=== PATIENT | female | born 1990 | race Caucasian/White ===

== ENCOUNTER 2016-05-03 20:16 | Emergency (ER) | payer BC, OTHER ==
[2016-05-03 20:34] VITALS: O2SAT 99
[2016-05-03] MEDS ORDERED: TORAdol 30 mg Injection IM ONE (22:26)
[2016-05-03] MEDS ORDERED: TORAdol 30 mg Injection ONE (22:45)
[2016-05-03 23:13] VITALS: BP 122/74; PULSE 68
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
== END 2016-05-04 01:10 ==
LOC: ED 20:16
DX: S13.9XXA Sprain of joints and ligaments of unspecified parts of neck, initial encounter (principal); S43.402A Unspecified sprain of left shoulder joint, initial encounter; M50.222 Other cervical disc displacement at C5-C6 level; V49.59XA Passenger injured in collision with other motor vehicles in traffic accident, initial encounter
CPT/HCPCS: 71010; 72125; 73030; 96372; 99282; J1885; L0172

== ENCOUNTER 2017-01-30 15:10 | Emergency (ER) | payer OTHER ==
[2017-01-30 15:25] VITALS: O2SAT 99
[2017-01-30] MEDS ORDERED: Adacel Vial IM ONE ×2 (15:36→15:44)
[2017-01-30] MEDS ORDERED: BACIGUENT PACKET ONE (15:36)
--- NOTE | 2017-01-30 15:46 | ERPHSYRPT ---
- History of Present Illness Time Seen by Provider: 01/30/17 15:41 Source: patient Exam Limitations: no limitations Patient Subjective Stated Complaint: laceration to inside of right hand at the base of the thumb Triage Nursing Assessment: pt to er c/o laceration to base of right thumb, pt was washing dishes when a piece of broken glass caused the injury, bleeding controlled, last tetnus unknown Physician History: The patient is a 26-year-old female with family complaining that she cut her right thumb base on glasses she was washing dishes prior to arrival. There is mild bleeding. There is no numbness or tingling. Her past tetanus vaccination is unknown. Timing/Duration: today Quality: other (lac) Severity: mild Location: hands Possible Causes: other (cut) Associated Symptoms: denies symptoms Allergies/Adverse Reactions: No Known Drug Allergies Allergy (Verified 05/03/16 20:45) Home Medications: No Home Meds [No Home Meds] 1 ea UD 05/03/16 [History] Hx Tetanus, Diphtheria Vaccination/Date Given: (unknown) Hx Influenza Vaccination/Date Given: No Hx Pneumococcal Vaccination/Date Given: No - Review of Systems Constitutional: No Fever, No Chills Eyes: No Symptoms Ears, Nose, & Throat: No Symptoms Respiratory: No Cough, No Dyspnea Cardiac: No Chest Pain, No Edema, No Syncope Abdominal/Gastrointestinal: No Abdominal Pain, No Nausea, No Vomiting, No Diarrhea Genitourinary Symptoms: No Dysuria Musculoskeletal: No Back Pain, No Neck Pain Skin: Other (lac) Neurological: No Dizziness, No Focal Weakness, No Sensory Changes Psychological: No Symptoms Endocrine: No Symptoms Hematologic/Lymphatic: No Symptoms Immunological/Allergic: No Symptoms All Other Systems: Reviewed and Negative - Past Medical History Pertinent Past Medical History: Yes Other Medical History: Homosystinuria - Past Surgical History Past Surgical History: Yes Other Surgical History: Eye surgery - Social History Smoking Status: Current every day smoker How long have you smoked: 10 Exposure to second hand smoke: Yes Alcohol Use: Socially Drug Use: none Patient Lives Alone: No - Female History Hx Last Menstrual Period: IUD Hx Now: No (on jarocho) - Nursing Vital Signs Nursing Vital Signs: Initial Vital Signs Temperature 98.2 F 01/30/17 15:24 Pulse Rate 94 H 01/30/17 15:24 Respiratory Rate 18 01/30/17 15:24 Blood Pressure 122/74 01/30/17 15:24 O2 Sat by Pulse Oximetry 99 01/30/17 15:24 Pain Scale Pain Intensity 7 - Physical Exam General Appearance: no apparent distress, alert Eye Exam: PERRL/EOMI, eyes nml inspection Ears, Nose, Throat Exam: normal ENT inspection, pharynx normal, moist mucous membranes Pelvic Exam: not done Rectal Exam: not done Back Exam: normal inspection, normal range of motion, No CVA tenderness, No vertebral tenderness Extremity Exam: normal inspection, normal range of motion Neurologic Exam: alert, oriented x 3, cooperative, normal mood/affect, sensation nml, No motor deficits Skin Exam: laceration (1.0 cm superficial laceration to base of right thumb.) SpO2 Interpretation: normal SpO2: 99 Oxygen Delivery: Room Air Ordered Tests: Medication Summary Discontinued Medications Generic Name Dose Route Start Last Admin Trade Name Freq PRN Reason Stop Dose Admin Bacitracin Confirm 01/30/17 15:36 Baciguent Packet Administered 01/30/17 15:37 Dose 1 gm .ROUTE .STK-MED ONE Diphtheria/Tetanus/Acell Pertussis 0.5 ml 01/30/17 15:36 Adacel Vial IM 01/30/17 15:37 .ONCE ONE - Progress Progress: improved Counseled pt/family regarding: diagnosis - Departure Time of Disposition: 15:44 Departure Disposition: Home Clinical Impression: Superficial laceration of skin Condition: Stable Critical Care Time: No Referrals: LUIS CARLOS GANDARA [Primary Care Provider] - Additional Instructions: You have a superficial laceration to your right thumb. Please keep the wound covered, especially try using waterproof Band-Aids available [id number]. You were given a tetanus vaccination in the ER. Follow-up as needed.
[2017-01-30 16:03] VITALS: BP 116/79; PULSE 84
== END 2017-01-30 16:04 | disposition home or self-care (01) ==
LOC: ED 15:10
DX: S61.411A Laceration without foreign body of right hand, initial encounter (principal); W25.XXXA Contact with sharp glass, initial encounter; Y93.G1 Activity, food preparation and clean up
CPT/HCPCS: 90471; 90715; 96372; 99281; 99283; A9270-GY

== ENCOUNTER 2019-03-01 07:29 | Emergency (ER) | payer OTHER ==
[2019-03-01] MEDS ORDERED: TYLENOL EXTRA STRENGTH 500 MG ONE (08:13)
[2019-03-01] MEDS: TYLENOL EXTRA STRENGTH 500 MG PO STA (08:14)
--- NOTE | 2019-03-01 08:16 | ERPHSYRPT ---
- History of Present Illness Time Seen by Provider: 03/01/19 07:50 Source: patient Exam Limitations: no limitations Patient Subjective Stated Complaint: Pt stated that she hasn't felt well since yesterday, having sharp pains from her left side and having flank pain, rates pain 12/07 Triage Nursing Assessment: Pt walked into the ER shivering, afebrile, vitals wnl , lungs clear, pulses normal, bowel sounds heard in all 4, pain with palpatation to the left quadrants and left flank pain, sore throat Physician History: Patient has had sore throat, fever and myalgias and lower back pain for the past day. No evaluation or treatment prior to coming into the emergency department. Timing/Duration: yesterday Fever Severity: moderate Fever Therapy CHEF BROILER OR FRY: none Associated Symptoms: muscle aches, rhinorrhea, sore throat, No abdominal pain, No chest pain, No confusion, No cough, No diaphoresis, No headache, No nausea/ vomiting, No rash, No shortness of breath, No stiff neck, No syncope, No weakness International travel in last 2 weeks: No Allergies/Adverse Reactions: No Known Drug Allergies Allergy (Verified 03/01/19 07:37) Home Medications: Aspirin EC 81 mg [Ecotrin 81 mg] 81 mg PO DAILY 03/01/19 [History] Vits W-Ca,Fe,FA(<1Mg) [] 1 each PO DAILY 03/01/19 [History] Hx Tetanus, Diphtheria Vaccination/Date Given: (unknown) Hx Influenza Vaccination/Date Given: Yes (12/2017) Hx Pneumococcal Vaccination/Date Given: No - Review of Systems Constitutional: Fever, Chills, Fatigue Eyes: No Eye Pain, No Vision Changes Ears, Nose, & Throat: Nose Congestion, Throat Pain, No Mouth Pain, No Mouth Swelling, No Hoarse, No Painful Swallowing Respiratory: No Cough, No Dyspnea, No Dyspnea on Exertion (FARLEY) Cardiac: No Chest Pain, No Palpitations, No Syncope Abdominal/Gastrointestinal: No Abdominal Pain, No Nausea, No Vomiting, No Hematemesis, No Hematochezia, No Melena Genitourinary Symptoms: No Dysuria, No Frequency, No Hematuria, No Urgency, No Flank Pain Musculoskeletal: Back Pain, Myalgias, No Neck Pain Skin: No Pruritis, No Rash Neurological: No Dizziness, No Focal Weakness, No Lethargy, No Parasthesia, No Sensory Changes, No Speech Changes Psychological: No Anxiety Endocrine: No Polydipsia, No Excessive Sweating Hematologic/Lymphatic: No Easy Bleeding, No Easy Bruising All Other Systems: Reviewed and Negative - Past Medical History Pertinent Past Medical History: Yes Other Medical History: Homosystinuria - Past Surgical History Past Surgical History: Yes Other Surgical History: Eye surgery - Social History Smoking Status: Current every day smoker How long have you smoked: 10 Exposure to second hand smoke: Yes Alcohol Use: Socially Drug Use: none Patient Lives Alone: No - Female History Hx Now: No (irregular periods since merena) - Nursing Vital Signs Nursing Vital Signs: Initial Vital Signs Temperature 98.1 F 03/01/19 07:37 Pulse Rate 84 03/01/19 07:37 Blood Pressure 110/74 03/01/19 07:37 O2 Sat by Pulse Oximetry 99 03/01/19 07:37 Pain Scale Pain Intensity 0 - Physical Exam General Appearance: no apparent distress, alert Eye Exam: PERRL/EOMI, eyes nml inspection, No scleral icterus, No pale conjunctivae, No photophobia ENT Exam: normal ENT inspection, no apparent trauma, hearing grossly normal, TMs normal, pharynx normal, nasal congestion, airway intact, No TM bulging, No TM red, No pharyngeal erythema, No tonsillar exudate, No trismus, No muffled/ hoarse voice Neck Exam: normal inspection, non-tender, supple, full range of motion, trachea midline, No limited range of motion, No lymphadenopathy (R), No lymphadenopathy (L), No Brudzinski's sign Respiratory Exam: normal breath sounds, chest non-tender, lungs clear, no respiratory distress, no accessory muscle use, No decreased breath sounds, No respiratory distress, No decreased air movement, No accessory muscle use, No crackles/rales, No rhonchi, No stridor, No wheezing Cardiovascular/Chest Exam: normal heart sounds, regular rate/rhythm, normal peripheral pulses Gastrointestinal/Abdominal Exam: soft, non tender, no distention, no mass, no guarding, no ecchymosis, normal bowel sounds, No no organomegaly, No guarding, No tenderness, No abnormal bowel sounds Extremity Exam: non-tender, normal range of motion, normal inspection, normal capillary refill Neurologic Exam: alert, oriented x 3, cooperative, plug assembler II-XII nml as tested, normal mood/affect, sensation nml Skin Exam: normal color, warm, dry, No rash, No petechiae, No jaundice, No cyanosis SpO2 Interpretation: normal SpO2: 99 O2 Delivery: Room Air Ordered Tests: Active Orders 24 hr Category Date Time Status CULTURE,URINE Stat Lab 03/01/19 08:02 Received HCG,QUALITATIVE URINE Stat Lab 03/01/19 08:03 Completed UA W/RFX UR CULTURE Stat Lab 03/01/19 08:02 Completed Medication Summary Discontinued Medications Generic Name Dose Route Start Last Admin Trade Name Carlos PRN Reason Stop Dose Admin Acetaminophen 1,000 mg 03/01/19 08:01 03/01/19 08:14 Tylenol Extra Strength 500 Mg PO 03/01/19 08:02 1,000 mg STAT STA Administration Acetaminophen Confirm 03/01/19 08:13 Tylenol Extra Strength 500 Mg Administered 03/01/19 08:14 Dose 1,000 mg .ROUTE .STK-MED ONE Ibuprofen 600 mg 03/01/19 09:13 03/01/19 09:17 Motrin 600 Mg PO 03/01/19 09:14 600 mg STAT ONE Administration Ibuprofen Confirm 03/01/19 09:16 Motrin 600 Mg Administered 03/01/19 09:17 Dose 600 mg .ROUTE .STK-MED ONE Lab/Rad Data: Laboratory Results 03/01/19 03/01/19 03/01/19 Range/Units 08:05 08:03 08:02 Urine Color ANIBAL (YELLOW) Urine Appearance SLIGHTLY CLOUDY (CLEAR) Urine pH 5.0 (5-6) Ur Specific [place] 1.029 (1.005-1.025) Urine Protein 30 (Negative) Urine Ketones SMALL (NEGATIVE) Urine Blood MODERATE (0-5) Rakesh/ul Urine Nitrite NEGATIVE (NEGATIVE) Urine Bilirubin NEGATIVE (NEGATIVE) Urine Urobilinogen 2 (0-1) mg/dL Ur Leukocyte Esterase TRACE (NEGATIVE) Urine WBC (Auto) 6-10 (0-5) /HPF Urine RBC (Auto) 11-15 (0-2) /HPF U Epithel Cells (Auto) FEW (FEW) /HPF Urine Bacteria (Auto) FEW (NEGATIVE) /HPF Urine Mucus (Auto) MANY (NEGATIVE) /HPF Urine Culture Reflexed YES (NO) Urine Glucose 50 (NEGATIVE) mg/dL Urine HCG, Qual NEGATIVE (Negative) Influenza Type A Ag NEGATIVE (NEGATIVE) Influenza Type B Ag NEGATIVE (NEGATIVE) RSV (PCR) NEGATIVE (Negative) Group A Strep Antibody POSITIVE (NEGATIVE) - Progress Progress: unchanged Progress Note: 03/01/19 09:32 Patient doing well. Patient's symptoms are due to the strep throat, but we will send the urine for culture and treat if it is positive accordingly as patient will be sent home with Keflex to treat the strep throat which will also cover susceptible bacteria infections of the urinary tract. Counseled pt/family regarding: lab results, diagnosis, need for follow-up - Departure Departure Disposition: Home Clinical Impression: Strep throat, Abnormal urinalysis Condition: Good Critical Care Time: No Referrals: LUIS CARLOS GANDARA [Primary Care Provider] - Follow Up with PCP/3 days Instructions: Sore Throat, Adult (DC), Fever, Adult (DC) Prescriptions: Cephalexin Mh 500 mg [Keflex 500 mg] 500 mg PO BID #20 capsule Prednisone 20 mg [Deltasone 20 mg] 60 mg PO DAILY PRN #9 tablet PRN Reason: Sore Throat Relief
[2019-03-01 08:48] LABS: Appearance SLIGHTLY CLOUDY (CLEAR); Bacteria FEW /HPF (NEGATIVE); Bilirubin NEGATIVE (NEGATIVE); Blood MODERATE Ery/ul (0-5); Epithelial Cells FEW /HPF (FEW); Glucose 50 mg/dL (NEGATIVE); Ketones SMALL (NEGATIVE); Leukocyte Esterase TRACE (NEGATIVE); Mucus MANY /HPF (NEGATIVE); Nitrite NEGATIVE (NEGATIVE); Protein,Urine Dip 30 (Negative); Specific Gravity 1.029 (1.005-1.025); Urobilinogen 2 mg/dL (0-1)
[2019-03-01 08:56] VITALS: BP 113/76; PULSE 89; O2SAT 99
[2019-03-01 09:02] LABS: Group A Strep POSITIVE (NEGATIVE); INFLUENZA A NEGATIVE (NEGATIVE); INFLUENZA B NEGATIVE (NEGATIVE); RESPIRATORY SYNCTIAL VIRUS NEGATIVE (Negative)
[2019-03-01] MEDS ORDERED: MOTRIN 600 MG ONE (09:16)
[2019-03-01] MEDS: MOTRIN 600 MG PO ONE (09:17)
== END 2019-03-01 09:41 | disposition home or self-care (01) ==
LOC: ED 07:29
DX: J02.0 Streptococcal pharyngitis (principal); R82.90 Unspecified abnormal findings in urine
CPT/HCPCS: 81001; 84703; 87086; 87631; 87651; 99283; A9270-GY

== ENCOUNTER 2019-04-27 14:28 | Emergency (ER) | payer BC, OTHER ==
[2019-04-27] MEDS ORDERED: Sodium Chloride 0.9% 1000 ML 1,000 ML IV STA (14:47)
[2019-04-27] MEDS ORDERED: MORPHINE SULFATE 2 MG INJ IV ONE (14:47)
[2019-04-27] MEDS ORDERED: MORPHINE SULFATE 2 MG INJ ONE (14:59)
[2019-04-27] MEDS ORDERED: Sodium Chloride 0.9% 1000 ML 1,000 ML ONE (14:59)
[2019-04-27 15:05] VITALS: O2SAT 99
[2019-04-27 15:07] LABS: Absolute Neutrophil Ct (ANC) 4.46 (1.4-6.9); BASOPHIL % 0.3 % (0.0-0.4); Basophil (Absolute #) 0.02 (0-0.4); Eosinophil % 2.4 % (0.00-5.0); Eosinophil (Absolute #) 0.19 (0-0.5); Hematocrit 34.6 % (35-47); Hemoglobin 11.7 gm/dl (12.0-16.0); Lymphocyte (Absolute #) 2.21 (1.0-4.6); Lymphocytes % 28.4 % (24.0-44.0); Mean Cell Volume 98.3 fl (78-100); Mean Corpuscular Hemoglobin 33.2 pg (26-32); Mean Corpuscular Hgb Concent. 33.8 g/dl (32-36); Mean Platelet Volume 10.6 fl (6-9.5); Monocyte (Absolute #) 0.91 (0.0-1.3); Monocytes % 11.7 % (0.0-12.0); Neutrophil % 57.2 % (36.0-66.0); Platelet Count 155 K/mm3 (150-450); Red Blood Count 3.52 M/mm3 (4.1-5.4); Red Cell Distribution Width 13.6 % (11.5-14.0); White Blood Count 7.8 K/mm3 (4.0-10.5)
[2019-04-27 15:12] LABS: ALBUMIN 3.4 g/dL (3.5-5.0); ALKALINE PHOSPHATASE 52 U/L (38-126); ANION GAP 8.7 MEQ/L (5-15); BLOOD UREA NITROGEN 11 mg/dL (7-17); CHLORIDE 105 mmol/L (98-107); Calcium 8.3 mg/dL (8.4-10.2); Carbon Dioxide 25 mmol/L (22-30); Creatinine 1 0.54 mg/dL (0.52-1.04); Glucose 89 mg/dL (74-106); Potassium 3.9 mmol/L (3.5-5.1); SGOT/AST 18 U/L (14-36); SGPT/ALT 23 U/L (0-35); SODIUM 136 mmol/L (137-145); Total Protein 6.4 g/dL (6.3-8.2)
--- NOTE | 2019-04-27 15:24 | ERPHSYRPT ---
- History of Present Illness Time Seen by Provider: 04/27/19 15:23 Historian: patient Exam Limitations: no limitations Patient Subjective Stated Complaint: pt reports sharp suprapubic mid abdominal pain for 2 days, states she took a home pregnany test that was quickly positive, reports that she has a metabolic disorder that causes her to be high risk and is concerned. pt denies any vaginal discharge or bleeding, last sexual acitivty was 3 days ago. pt reports her mirena was removed 3 months ago and she has not had a regular menstrual cycle since that time. Triage Nursing Assessment: pt is aox3, pupils perrl, afebrile, resps easy and non labored, radial pulses strong and equal, cap refill < 3 seconds, abd soft, tender to the lower mid suprapubic region, pt skin pale warm dry. Physician History: pt reports sharp suprapubic mid abdominal pain for 2 days, states she took a home pregnany test that was quickly positive, reports that she has a metabolic disorder that causes her to be high risk and is concerned. pt denies any vaginal discharge or bleeding, last sexual acitivty was 3 days ago. pt reports her mirena was removed 3 months ago and she has not had a regular menstrual cycle since that time. No fever, chills, no urinary symptoms Timing/Duration: today Quality: cramping Abdominal Pain Onset Location: suprapubic Pain Radiation: no radiation Severity of Pain-Max: moderate Severity of Pain-Current: moderate Modifying Factors: Improves With: nothing Associated Symptoms: denies symptoms Previous symptoms: no prior history Allergies/Adverse Reactions: No Known Drug Allergies Allergy (Verified 04/27/19 14:51) Home Medications: Aspirin EC 81 mg [Ecotrin 81 mg] 81 mg PO DAILY 03/01/19 [History] Vits W-Ca,Fe,FA(<1Mg) [] 1 each PO DAILY 03/01/19 [History] Hx Tetanus, Diphtheria Vaccination/Date Given: Yes Hx Influenza Vaccination/Date Given: Yes Hx Pneumococcal Vaccination/Date Given: No Immunizations Up to Date: Yes - Review of Systems Constitutional: No Fever, No Chills Eyes: No Symptoms Ears, Nose, & Throat: No Symptoms Respiratory: No Cough, No Dyspnea Cardiac: No Chest Pain, No Edema, No Syncope Abdominal/Gastrointestinal: Abdominal Pain, No Nausea, No Vomiting, No Diarrhea Genitourinary Symptoms: No Dysuria Musculoskeletal: No Back Pain, No Neck Pain Skin: No Rash Neurological: No Dizziness, No Focal Weakness, No Sensory Changes Psychological: No Symptoms Endocrine: No Symptoms All Other Systems: Reviewed and Negative - Past Medical History Pertinent Past Medical History: Yes Other Medical History: Homosystinuria. history of 4 miscarriages, one living child - Past Surgical History Past Surgical History: Yes Other Surgical History: Eye surgery - Social History Smoking Status: Current every day smoker How long have you smoked: 10 Exposure to second hand smoke: Yes Alcohol Use: Socially Drug Use: none Patient Lives Alone: No - Female History Hx Last Menstrual Period: january Hx Now: Yes (home test 2 days ago) - Nursing Vital Signs Nursing Vital Signs: Initial Vital Signs Temperature 98.7 F 04/27/19 14:34 Pulse Rate 86 04/27/19 14:34 Respiratory Rate 20 04/27/19 14:34 Blood Pressure 119/86 04/27/19 14:34 O2 Sat by Pulse Oximetry 100 04/27/19 14:34 Pain Scale Pain Intensity 6 - Physical Exam General Appearance: no apparent distress, alert Eye Exam: PERRL/EOMI, eyes nml inspection Ears, Nose, Throat Exam: normal ENT inspection, pharynx normal, moist mucous membranes Neck Exam: normal inspection, non-tender, supple, full range of motion Respiratory Exam: normal breath sounds, lungs clear, No respiratory distress Cardiovascular Exam: regular rate/rhythm, normal heart sounds Gastrointestinal/Abdomen Exam: soft, No tenderness, No mass Back Exam: normal inspection, normal range of motion, No CVA tenderness, No vertebral tenderness Extremity Exam: normal inspection, normal range of motion, pelvis stable Neurologic Exam: alert, oriented x 3, cooperative, normal mood/affect, nml cerebellar function, sensation nml, No motor deficits Skin Exam: normal color, warm, dry SpO2: 99 - Course Nursing assessment & vital signs reviewed: Yes Ordered Tests: Active Orders 24 hr Category Date Time Status IV Insertion STAT Care 04/27/19 14:52 Active CBC W DIFF Stat Lab 04/27/19 14:57 Completed CMP Stat Lab 04/27/19 14:57 Completed CULTURE,URINE Stat Lab 04/27/19 14:58 Received HCG QUALITATIVE,SERUM Stat Lab 04/27/19 14:57 Completed HCG, Quantitative (Inhouse) Stat Lab 04/27/19 14:57 Received UA W/RFX UR CULTURE Stat Lab 04/27/19 14:58 Completed Medication Summary Generic Name Dose Route Start Last Admin Trade Name Carlos PRN Reason Stop Dose Admin Ceftriaxone Sodium/Dextrose 1 g in 50 mls @ 100 mls/hr 04/27/19 15:42 15:44 Rocephin 1 Gm-D5w 50 Ml Bag IV 04/27/19 16:11 100 ml/hr STAT STA 100 mls/hr Administration Discontinued Medications Generic Name Dose Route Start Last Admin Trade Name Carlos PRN Reason Stop Dose Admin Ceftriaxone Sodium 1,000 mg 04/27/19 15:40 04/27/19 15:42 Rocephin 1000 Mg Inj IM 04/27/19 15:41 Not Given STAT ONE Sodium Chloride 1,000 mls @ 999 mls/hr 04/27/19 14:47 04/27/19 15:46 Sodium Chloride 0.9% 1000 Ml IV 04/27/19 15:47 Infused .Q1H1M STA Infusion Sodium Chloride Confirm 04/27/19 14:59 Sodium Chloride 0.9% 1000 Ml Administered 04/27/19 15:00 Dose 1,000 mls @ ud .ROUTE .STK-MED ONE Ceftriaxone Sodium/Dextrose Confirm 04/27/19 15:43 Rocephin 1 Gm-D5w 50 Ml Bag Administered 04/27/19 15:44 Dose 1 g in 50 mls @ ud IV .STK-MED ONE Morphine Sulfate 2 mg 04/27/19 14:47 04/27/19 15:01 Morphine Sulfate 2 Mg Inj IV 04/27/19 14:48 2 mg STAT ONE Administration Morphine Sulfate Confirm 04/27/19 14:59 Morphine Sulfate 2 Mg Inj Administered 04/27/19 15:00 Dose 2 mg .ROUTE .STK-MED ONE Lab/Rad Data: Laboratory Result Diagrams 04/27/19 14:57 04/27/19 14:57 Laboratory Results 04/27/19 04/27/19 04/27/19 Range/Units 14:58 14:57 14:57 WBC (4.0-10.5) K/mm3 RBC (4.1-5.4) M/mm3 Hgb (12.0-16.0) gm/dl Hct (35-47) % MCV (78-100) fl MCH (26-32) pg MCHC (32-36) g/dl RDW (11.5-14.0) % Plt Count (150-450) K/mm3 MPV (6-9.5) fl Gran % (36.0-66.0) % Eos # (Auto) (0-0.5) Absolute Lymphs (auto) (1.0-4.6) Absolute Monos (auto) (0.0-1.3) Lymphocytes % (24.0-44.0) % Monocytes % (0.0-12.0) % Eosinophils % (0.00-5.0) % Basophils % (0.0-0.4) % Absolute Granulocytes (1.4-6.9) Basophils # (0-0.4) Sodium 136 L (137-145) mmol/L Potassium 3.9 (3.5-5.1) mmol/L Chloride 105 (98-107) mmol/L Carbon Dioxide 25 (22-30) mmol/L Anion Gap 8.7 (5-15) MEQ/L BUN 11 (7-17) mg/dL Creatinine 0.54 (0.52-1.04) mg/dL Estimated GFR > 60.0 ML/MIN Glucose 89 (74-106) mg/dL Calcium 8.3 L (8.4-10.2) mg/dL Total Bilirubin 0.30 (0.2-1.3) mg/dL AST 18 (14-36) U/L ALT 23 (0-35) U/L Alkaline Phosphatase 52 (38-126) U/L Serum Total Protein 6.4 (6.3-8.2) g/dL Albumin 3.4 L (3.5-5.0) g/dL Serum , Qual POSITIVE (Negative) Urine Color YELLOW (YELLOW) Urine Appearance SLIGHTLY CLOUDY (CLEAR) Urine pH 6.0 (5-6) Ur Specific [place] 1.029 (1.005-1.025) Urine Protein NEGATIVE (Negative) Urine Ketones TRACE (NEGATIVE) Urine Blood SMALL (0-5) Rakesh/ul Urine Nitrite NEGATIVE (NEGATIVE) Urine Bilirubin NEGATIVE (NEGATIVE) Urine Urobilinogen NEGATIVE (0-1) mg/dL Ur Leukocyte Esterase TRACE (NEGATIVE) Urine WBC (Auto) 6-10 (0-5) /HPF Urine RBC (Auto) 3-5 (0-2) /HPF U Epithel Cells (Auto) RARE (FEW) /HPF Urine Bacteria (Auto) FEW (NEGATIVE) /HPF Urine Mucus (Auto) SLIGHT (NEGATIVE) /HPF Urine Culture Reflexed YES (NO) Urine Glucose NEGATIVE (NEGATIVE) mg/dL 04/27/19 Range/Units 14:57 WBC 7.8 (4.0-10.5) K/mm3 RBC 3.52 L (4.1-5.4) M/mm3 Hgb 11.7 L (12.0-16.0) gm/dl Hct 34.6 L (35-47) % MCV 98.3 (78-100) fl MCH 33.2 H (26-32) pg MCHC 33.8 (32-36) g/dl RDW 13.6 (11.5-14.0) % Plt Count 155 (150-450) K/mm3 MPV 10.6 H (6-9.5) fl Gran % 57.2 (36.0-66.0) % Eos # (Auto) 0.19 (0-0.5) Absolute Lymphs (auto) 2.21 (1.0-4.6) Absolute Monos (auto) 0.91 (0.0-1.3) Lymphocytes % 28.4 (24.0-44.0) % Monocytes % 11.7 (0.0-12.0) % Eosinophils % 2.4 (0.00-5.0) % Basophils % 0.3 (0.0-0.4) % Absolute Granulocytes 4.46 (1.4-6.9) Basophils # 0.02 (0-0.4) Sodium (137-145) mmol/L Potassium (3.5-5.1) mmol/L Chloride (98-107) mmol/L Carbon Dioxide (22-30) mmol/L Anion Gap (5-15) MEQ/L BUN (7-17) mg/dL Creatinine (0.52-1.04) mg/dL Estimated GFR ML/MIN Glucose (74-106) mg/dL Calcium (8.4-10.2) mg/dL Total Bilirubin (0.2-1.3) mg/dL AST (14-36) U/L ALT (0-35) U/L Alkaline Phosphatase (38-126) U/L Serum Total Protein (6.3-8.2) g/dL Albumin (3.5-5.0) g/dL Serum , Qual (Negative) Urine Color (YELLOW) Urine Appearance (CLEAR) Urine pH (5-6) Ur Specific [place] (1.005-1.025) Urine Protein (Negative) Urine Ketones (NEGATIVE) Urine Blood (0-5) Rakesh/ul Urine Nitrite (NEGATIVE) Urine Bilirubin (NEGATIVE) Urine Urobilinogen (0-1) mg/dL Ur Leukocyte Esterase (NEGATIVE) Urine WBC (Auto) (0-5) /HPF Urine RBC (Auto) (0-2) /HPF U Epithel Cells (Auto) (FEW) /HPF Urine Bacteria (Auto) (NEGATIVE) /HPF Urine Mucus (Auto) (NEGATIVE) /HPF Urine Culture Reflexed (NO) Urine Glucose (NEGATIVE) mg/dL - Progress Progress: improved Counseled pt/family regarding: lab results, diagnosis, need for follow-up - Departure Departure Disposition: Home Clinical Impression: and infectious disease in first trimester UTI (urinary tract infection) during Qualifiers: Trimester: first trimester Qualified Code(s): O23.41 - Unspecified infection of urinary tract in , first trimester Condition: Stable Critical Care Time: No Referrals: LUIS CARLOS GANDARA [Primary Care Provider] - Instructions: Medications and , Avoiding Infections in , Symptoms, Activity During , - The First Month Additional Instructions: Discharge/Care Plan RUBY RAINEY was seen on 04/27/19 in the Emergency Room. The patient was counseled regarding Diagnosis,Lab results, Imaging studies, need for follow up and when to return to the Emergency Room. Prescriptions given: Discharge Note I have spoken with the patient and/or caregivers. I have explained the patient' s condition, diagnosis and treatment plan based on the information available to me at this time. I have answered the patient's and/or caregiver's questions and addressed any concerns. The patient and/or caregivers have as good understanding of the patient's diagnosis, condition and treatment plan as can be expected at this point. The vital signs have been stable. The patient's condition is stable and appropriate for discharge from the emergency department. The patient will pursue further outpatient evaluation with the primary care physician or other designated or consulting physician as outlined in the discharge instructions. The patient and/or caregivers are agreeable to this plan of care and follow-up instructions have been explained in detail. The patient and/or caregivers have received these instruction. The patient/and or caregivers are aware that any significant change in condition or worsening of symptoms should prompt an immediate return to this or the closest emergency department or call 911. RUBY RAINEY was seen on 04/27/19 n the Emergency Room. At that time you were treated for an emergent condition, during your visit Laboratory, Radiology and/or other procedures may have been ordered. It is very important that you follow-up with your Primary Care Physician LUIS CARLOS GANDARA within the next 24-48 hours to review your Emergency Room visit and the final results of testing that was ordered. Some test results such as Urine Cultures, Blood Cultures, and other cultures if ordered will not be finalized for 24-48 hours. If you do not have a Primary Care Provider please call the medical records department at [phone] ext [phone] to obtain a copy of your results or you may sign into our patient portal to obtain these results by visiting us @ [email or web address] and completing the following steps: 1. Click on the Patient Portal link 2. Click the Patient Self Enrollment Link to complete the enrollment form and entering your 3. Once the enrollment form is completed you will receive an email with a temporary ID and password at the email address you provided. 4. Next choose a user name and password. Your user name must be at least 4 characters long and your password must be at least 4 characters long. 5. Choose a security question from the list and provide your answer to the question. If you already have signed into the Health Portal you may access your Health Care Information 20/11 by the following steps: 1. Login to our website @ [email or web address] 2. Enter your original user name and password. FAQS The [facility] Portal is an online tool that contains your Lab Results, Radiology Reports, Visit History, Discharge Instructions and Health Summary Lab and Radiology Results will not be available for 72 hours on the portal. The Portal is a secure site, passwords are encryted and URLs are re-written so they cannot be copied and pasted. You and authorized family members are the only ones who can access your Portal. Also there is a timeout feature that protects your information if you leave the Portal page open. If you have technical difficulty please use the Contact Us link on the page this will allow you to submit any questions you have regarding the Portal or you may contact the Medical Record Department at [phone] ext [phone]. Prescriptions: Nitrofurantoin Macro 100 mg [Macrobid 100MG Capsule] 100 mg PO BID #20 cap
[2019-04-27 15:37] LABS: Appearance SLIGHTLY CLOUDY (CLEAR); Bacteria FEW /HPF (NEGATIVE); Bilirubin NEGATIVE (NEGATIVE); Blood SMALL Ery/ul (0-5); Epithelial Cells RARE /HPF (FEW); Glucose NEGATIVE (NEGATIVE); Ketones TRACE (NEGATIVE); Leukocyte Esterase TRACE (NEGATIVE); Mucus SLIGHT /HPF (NEGATIVE); Nitrite NEGATIVE (NEGATIVE); Protein,Urine Dip NEGATIVE (Negative); Specific Gravity 1.029 (1.005-1.025); Urobilinogen NEGATIVE mg/dL (0-1)
[2019-04-27] MEDS ORDERED: Rocephin 1000 MG INJ IM ONE (15:40)
[2019-04-27] MEDS ORDERED: ROCEPHIN 1 Gm-D5w 50 ml Bag** 1 G/50 ML IVPB IV STA (15:42)
[2019-04-27] MEDS ORDERED: ROCEPHIN 1 Gm-D5w 50 ml Bag** 1 G/50 ML IVPB IV ONE (15:43)
[2019-04-27 16:11] VITALS: BP 123/80; PULSE 72
== END 2019-04-27 16:19 | disposition home or self-care (01) ==
LOC: ED 14:28
DX: O23.41 Unspecified infection of urinary tract in pregnancy, first trimester (principal)
CPT/HCPCS: 36000; 36415; 80053; 81001; 81025; 84702; 85025; 87086; 96360; 96365; 96374; 99284; J0696; J2270

== ENCOUNTER 2021-08-21 15:06 | Emergency (ER) | payer OTHER ==
[2021-08-21 15:21] VITALS: BP 128/73; O2SAT 95
[2021-08-21] MEDS ORDERED: DUONEB 0.5-3 MG/3 ml Neb IH ONE ×2 (15:31→15:46)
--- NOTE | 2021-08-21 15:48 | ERPHSYRPT ---
- History of Present Illness Source: patient Exam Limitations: no limitations Patient Subjective Stated Complaint: Sorethroat and cough for the past couple of days Triage Nursing Assessment: Pt c/o of cough and sorethroat for the past couple of days, vitals wnl, rates pain as 7/10, pt barely able to speak, throat is red, coughing up green thick sputum, demetria wheezing, skin n/w/d, pulses normal, appears to not feel very well Physician History: 30 [address]/Cough/fever/Nausea-vomiting w cough/coryza x2 days. Pt has a h/o asthma but smokes 1/2 ppd. Timing/Duration: days (2 days) Severity: mild ENT Location: throat Modifying Factors: Improves With: coughing, deep breath, exertion Associated Symptoms: cough, fever, chills, nasal congestion/drainage, sore throat, No ear pain (R), No ear pain (L), No change in hearing, No dizziness, No drooling, No ear drainage, No facial pain/swelling, No headache, No hearing loss, No jaw pain, No malaise, No motion sickness, No epistaxis Allergies/Adverse Reactions: No Known Drug Allergies Allergy (Verified 08/21/21 15:21) Home Medications: Albuterol Sulfate [Albuterol Sulfate Hfa] 1 inh PO UD 08/21/21 [History] Buprenorphine HCl/Naloxone HCl [Buprenorphine-Nalox 8-2Mg Film] 2 each SL DAILY 08/21/21 [History] Hx Tetanus, Diphtheria Vaccination/Date Given: Yes Hx Influenza Vaccination/Date Given: Yes Hx Pneumococcal Vaccination/Date Given: No Travel Risk - International Travel Have you traveled outside of the country in past 3 weeks: No - Coronavirus Screening Are you exhibiting any of the following symptoms?: Yes Symptoms: Cough: New Onset Close contact with a COVID-19 positive Pt in past 14-21 Days: No - Vaccine Status Have you recieved a Covid-19 vaccination: No - Review of Systems Constitutional: No Symptoms, Fever Eyes: No Symptoms Ears, Nose, & Throat: No Symptoms, Nose Congestion, Nose Discharge, Throat Pain Respiratory: No Symptoms, Cough, Dyspnea Cardiac: No Symptoms Abdominal/Gastrointestinal: No Symptoms Genitourinary Symptoms: No Symptoms Musculoskeletal: No Symptoms Skin: No Symptoms Neurological: No Symptoms Psychological: No Symptoms Endocrine: No Symptoms Hematologic/Lymphatic: No Symptoms Immunological/Allergic: No Symptoms - Past Medical History Pertinent Past Medical History: Yes Other Medical History: Homosystinuria. history of 4 miscarriages, one living child - Past Surgical History Past Surgical History: Yes Other Surgical History: Eye surgery - Social History Smoking Status: Current every day smoker How long have you smoked: 10 Exposure to second hand smoke: Yes Alcohol Use: Socially Drug Use: none Patient Lives Alone: No Significant Family History: no pertinent family hx - Female History Hx Now: No (implants) - Nursing Vital Signs Nursing Vital Signs: Initial Vital Signs Temperature 98.4 F 08/21/21 15:12 Pulse Rate 82 08/21/21 15:12 Blood Pressure 128/73 08/21/21 15:12 O2 Sat by Pulse Oximetry 95 08/21/21 15:12 Pain Scale Pain Intensity 7 WNL - Physical Exam General Appearance: no apparent distress Eye Exam: bilateral eye: normal inspection, PERRL, EOMI Ear Exam: bilateral ear: other (Occluded by cerumen B) Nasal Exam: normal inspection Throat Exam: normal, pharynx normal (Mild erythema), moist mucus membranes, No pharynx swelling, No pharynx tenderness Neck Exam: non-tender, supple, full range of motion, trachea midline Cardiovascular/Respiratory Exam: normal breath sounds, regular rate/rhythm, heart sounds normal, rhonchi (Mild wheezes and rhonchi B), wheezing (Mild wheezes and rhonchi B) Abdominal Exam: non-tender, soft Neurologic Exam: alert, oriented x 3, cooperative, rattle leak and squeak repairer II-XII nml as tested, normal mood/affect, nml station & gait, sensation nml Skin Exam: normal color SpO2 Interpretation: normal SpO2: 95 O2 Delivery: Room Air - Course Nursing assessment & vital signs reviewed: Yes - Radiology Exams Chest X-ray Interpretation: Interpreted by me (CXR neg per Rad) Ordered Tests: Active Orders 24 hr Category Date Time Status CHEST 1 VIEW (PORTABLE) Stat Exams 08/21/21 15:32 Taken Respiratory Therapy Assessment ONCE RT 08/21/21 15:36 Completed Medication Summary Discontinued Medications Generic Name Dose Route Start Last Admin Trade Name Freq PRN Reason Stop Dose Admin Albuterol/Ipratropium 3 ml 08/21/21 15:31 08/21/21 15:50 Ipratropium/Albuterol Sulfate 3 Ml Ampul.Neb IH 08/21/21 15:32 3 ml STAT ONE Administration Albuterol/Ipratropium Confirm 08/21/21 15:46 Ipratropium/Albuterol Sulfate 3 Ml Ampul.Neb Administered 08/21/21 15:47 Dose 3 ml IH .STK-MED ONE Lab/Rad Data: Laboratory Results 08/21/21 08/21/21 Range/Units 15:37 15:37 Influenza Type A Ag POSITIVE (NEGATIVE) Influenza Type B Ag NEGATIVE (NEGATIVE) RSV (PCR) NEGATIVE (Negative) SARS-CoV-2 (PCR) NEGATIVE (NEGATIVE) Group A Strep Antibody NOT DETECTED (NEGATIVE) - Progress Progress Note: 08/21/21 16:25 Aisa curry improvement Counseled pt/family regarding: lab results, diagnosis, need for follow-up, rad results - Departure Departure Disposition: Home Clinical Impression: Influenza A Condition: Stable Critical Care Time: No Referrals: SARA KENNEDY MD [Primary Care Provider] - Follow up/PCP as directed Instructions: Flu, Adult (DC) Additional Instructions: Start Tamiflu twice a day Rest, Fluids, Motrin,Tylenol Use your inhaler Forms: Work/School Release Form Prescriptions: Oseltamivir Phosphate [Tamiflu] 75 mg PO BID 5 Days #10
[2021-08-21 16:15] LABS: INFLUENZA B NEGATIVE (NEGATIVE); RESPIRATORY SYNCTIAL VIRUS NEGATIVE (Negative); SARS-CoV-2 Xpert Express NEGATIVE (NEGATIVE)
[2021-08-21 16:22] LABS: INFLUENZA A POSITIVE (NEGATIVE)
[2021-08-21 17:22] VITALS: PULSE 76
--- NOTE | 2021-08-21 18:37 | XRAY ---
Indication: Cough and sore throat. Comparison: May 03, 2016. Portable chest remains hyperinflated and clear with a few incidental tiny right infrahilar calcified nodes. Heart not enlarged. Bony thorax intact. No new/acute findings.
== END 2021-08-21 16:37 | disposition home or self-care (01) ==
LOC: ED 15:06
DX: J10.1 Influenza due to other identified influenza virus with other respiratory manifestations (principal); R05.1 Acute cough; R50.9 Fever, unspecified; R11.2 Nausea with vomiting, unspecified; R09.81 Nasal congestion; Z72.0 Tobacco use; Z79.891 Long term (current) use of opiate analgesic
CPT/HCPCS: 0241U; 71045; 87651; 94640; 99283; A9270-GY